=== PATIENT | female | born 1950 | race Caucasian/White ===

== ENCOUNTER 2023-09-13 17:51 | Emergency (ER) | payer MEDICARE, OTHER ==
[~2023-09-13] VITALS: Ht 170.2 cm; Wt 73.8 kg
[2023-09-13 18:28] LABS: BASOPHILS # (AUTO) 0.1 X10'3 (0-0.2); BASOPHILS % (AUTO) 0.8 % (0-1); EOSINOPHILS # (AUTO) 0.1 X10'3 (0-0.9); EOSINOPHILS % (AUTO) 1.8 % (0-6); HEMATOCRIT 45.3 % (35.0-45.0); HEMOGLOBIN 15.3 g/dl (12.0-16.0); LYMPHOCYTES # (AUTO) 2.8 X10'3 (1.1-4.8); LYMPHOCYTES % (AUTO) 41.8 % (21-51); MEAN CORPUSCULAR HEMOGLOBIN 32.5 PG (27.0-31.0); MEAN CORPUSCULAR HGB CONC 33.9 g/dL (33.0-36.5); MEAN PLATELET VOLUME 7.8 FL (7.4-10.4); MONOCYTES # (AUTO) 0.5 X10'3 (0-0.9); MONOCYTES % (AUTO) 8.2 % (2-12); NEUTROPHILS # (AUTO) 3.2 X10'3 (1.8-7.7); NEUTROPHILS % (AUTO) 47.4 % (42-75); PLATELET COUNT 228 X10'3 (140-440); RED BLOOD COUNT 4.72 X10'6 (4.20-5.60); RED CELL DISTRIBUTION WIDTH 12.8 % (11.5-14.5); WHITE BLOOD COUNT 6.7 X10'3 (4.5-11.0)
[2023-09-13 18:43] LABS: ALBUMIN 3.8 G/DL (3.4-5.0); ANION GAP 6 (8-16); BLOOD UREA NITROGEN 23 MG/DL (7-18); BUN/CREATININE RATIO 26.7 (10.0-20.0); CALCIUM 8.5 MG/DL (8.5-10.1); CHLORIDE 106 MMOL/L (99-107); CREATININE 0.86 MG/DL (0.40-0.90); GLUCOSE 97 MG/DL (70-104); POTASSIUM 3.9 MMOL/L (3.5-5.1); SODIUM 142 MMOL/L (135-145); TOTAL CARBON DIOXIDE 30.3 MMOL/L (24-32); eCRCL 55 ML/MIN; eGFR 64 ML/MIN
[2023-09-13 20:18] LABS: PRO BRAIN NATRIURETIC PEPTIDE 933 PG/ML (0-450)
[2023-09-13] MEDS: diltiazem 5mg/ml 5ml inj. IV ONE (20:57)
[2023-09-13 23:37] VITALS: BP 110/69; PULSE 69; RESP 13; TEMP 97.8; O2SAT 98
== END 2023-09-13 23:40 | disposition home or self-care (01) ==
LOC: ER 17:52
DX: I48.91 Unspecified atrial fibrillation (principal); I49.9 Cardiac arrhythmia, unspecified
CPT/HCPCS: 36415; 71045; 80048; 83880; 84484; 85025; 93005; 96374; 99285; J3490; J7030

== ENCOUNTER 2023-10-18 22:51 | Inpatient (IN) | payer MEDICARE, OTHER ==
[~2023-10-18] VITALS: Ht 170.2 cm; Wt 73.0 kg
[2023-10-18 23:10] LABS: BASOPHILS % (AUTO) 0.7 % (0-1); EOSINOPHILS # (AUTO) 0.1 X10'3 (0-0.9); EOSINOPHILS % (AUTO) 0.8 % (0-6); HEMATOCRIT 45.6 % (35.0-45.0); HEMOGLOBIN 15.6 g/dl (12.0-16.0); LYMPHOCYTES # (AUTO) 1.5 X10'3 (1.1-4.8); LYMPHOCYTES % (AUTO) 25.3 % (21-51); MEAN CORPUSCULAR HEMOGLOBIN 32.9 PG (27.0-31.0); MEAN CORPUSCULAR HGB CONC 34.2 g/dL (33.0-36.5); MEAN CORPUSCULAR VOLUME 96.4 FL (78-98); MEAN PLATELET VOLUME 7.6 FL (7.4-10.4); MONOCYTES # (AUTO) 0.6 X10'3 (0-0.9); MONOCYTES % (AUTO) 10.2 % (2-12); NEUTROPHILS # (AUTO) 3.8 X10'3 (1.8-7.7); PLATELET COUNT 193 X10'3 (140-440); RED BLOOD COUNT 4.73 X10'6 (4.20-5.60); RED CELL DISTRIBUTION WIDTH 13.6 % (11.5-14.5)
[2023-10-18 23:26] LABS: ALBUMIN 3.9 G/DL (3.4-5.0); ANION GAP 10 (8-16); BLOOD UREA NITROGEN 19 MG/DL (7-18); BUN/CREATININE RATIO 17.9 (10.0-20.0); CALCIUM 8.7 MG/DL (8.5-10.1); CHLORIDE 103 MMOL/L (99-107); CREATININE 1.06 MG/DL (0.40-0.90); GLUCOSE 109 MG/DL (70-104); MAGNESIUM 2.1 MG/DL (1.5-2.4); POTASSIUM 3.4 MMOL/L (3.5-5.1); SODIUM 141 MMOL/L (135-145); TOTAL CARBON DIOXIDE 28.1 MMOL/L (24-32); eCRCL 45 ML/MIN; eGFR 51 ML/MIN
[2023-10-18] MEDS: diltiazem 5mg/ml 5ml inj. IV ONE (23:35)
[2023-10-19] MEDS: potassium Cl 20 mEq SR tablet PO STA (00:24)
[2023-10-19 00:42] LABS: BILIRUBIN,URINE NEGATIVE (Neg); CLARITY,URINE SLIGHTLY CLOUDY (Clear); COLOR,URINE YELLOW (Yellow); GLUCOSE, URINE NEGATIVE (Neg); KETONES,URINE NEGATIVE (Neg); LEUKOCYTE ESTERASE ,URINE TRACE (Neg); NITRITES, URINE POSITIVE (Neg); OCCULT BLOOD,URINE TRACE-INTACT (Neg); PROTEIN,URINE NEGATIVE (Neg); UROBILINOGEN,URINE 0.2 E.U/dL (0.2-1.0)
[2023-10-19 00:48] LABS: UA COLLECTION TYPE NON-SPECIFIED
[2023-10-19 01:02] LABS: BACTERIA,URINE 4+ /HPF (Neg); RBC,URINE 0-2 /HPF (0-2); SQUAMOUS EPITHELIAL CELL,UR FEW /LPF (FEW)
[2023-10-19] MEDS: normal saline 1000ML IV soln IVB ONE (01:28)
[2023-10-19] MEDS: CefTRIAXone/D5W-Rocephin 1gm 50 ML IV ONE (01:28)
[2023-10-19] MEDS ORDERED: magnesium 4gm in 100ml NS 100 ML IV PRN (05:55)
[2023-10-19] MEDS ORDERED: magnesium 2GM in 50ml NS 50 ML IV PRN (05:55)
[2023-10-19] MEDS ORDERED: magnesium hydroxide 30ml (MOM) UD suspension PO PRN (05:55)
[2023-10-19] MEDS ORDERED: ondansetron/PF 4mg/2ml inj IV PRN (05:55)
[2023-10-19] MEDS ORDERED: potassium Cl 20 mEq SR tablet PO PRN ×2 (05:55)
[2023-10-19] MEDS ORDERED: magnesium Cl slow-release 64mg tablet PO PRN (05:55)
[2023-10-19] MEDS ORDERED: acetaminophen 325mg tablet PO PRN (05:55)
[2023-10-19] MEDS ORDERED: potassium Cl 40MEQ/1/2NS 520ml 520 ML IV PRN (05:55)
[2023-10-19] MEDS ORDERED: mag hydrox/Alum hydrox/simeth 30ml oral suspension PO PRN (05:55)
[2023-10-19 06:51] VITALS: TEMP 98.1
[2023-10-19] MEDS: normal saline 1000ml 1,000 ML IV SCH (06:51)
[2023-10-19] MEDS: K and/or MAG REPLACEMENT MC SCH (08:00)
[2023-10-19] MEDS ORDERED: heparin, porcine 5000 units/ml vial SQ SCH (08:00)
[2023-10-19] MEDS: docusate sod 100mg capsule PO SCH (08:32)
[2023-10-19] MEDS: apixaban 5mg tablet PO SCH (08:32)
[2023-10-19 09:51] LABS: POTASSIUM 4.2 MMOL/L (3.5-5.1)
[2023-10-19 10:00] VITALS: BP 114/69; PULSE 71; RESP 13; O2SAT 98
[2023-10-19] MEDS ORDERED: FLEC50TA PO (10:38)
[2023-10-19] MEDS ORDERED: CIPR-259 PO (10:45)
[2023-10-19] MEDS ORDERED: APIX5TAB3 PO (10:45)
[2023-10-19] MEDS ORDERED: flecainide 50mg tablet PO SCH (20:00)
[2023-10-20] MEDS ORDERED: CefTRIAXone/D5W-Rocephin 1gm 50 ML IV SCH (01:00)
== END 2023-10-19 15:25 | disposition home or self-care (01) | DRG 308 ==
LOC: ER 22:51 → ED HOLD 10-19 06:04 → PCU 3S 10-19 10:25
PROVIDERS: ADMIT Internal Medicine Sleep Medicine; ATTEND Internal Medicine
DX: I48.0 Paroxysmal atrial fibrillation (principal); N17.0 Acute kidney failure with tubular necrosis; N39.0 Urinary tract infection, site not specified; E78.00 Pure hypercholesterolemia, unspecified; M54.9 Dorsalgia, unspecified; I95.9 Hypotension, unspecified; G89.29 Other chronic pain; Z79.01 Long term (current) use of anticoagulants; Z79.899 Other long term (current) drug therapy
CPT/HCPCS: 36415; 71045; 80048; 81001; 83735; 84132; 84145; 84484; 85025; 87077; 87088; 87186; 93005; 96365; 96375; 99285; G0378; J0696; J3490; J7030